=== PATIENT | male | born 1945 | race Caucasian/White ===

== ENCOUNTER 2018-11-24 13:13 | Inpatient (IN) ==
[2018-11-24] MEDS ORDERED: Mag Hydrox/Al Hydrox/Simeth 30 ML UDC PO PRN (18:12)
[2018-11-24] MEDS ORDERED: Ondansetron ODT 4 MG TAB.RAPDIS SL PRN (18:13)
[2018-11-24] MEDS: *HR* OxyCODONE/APAP 5/325 TABLET PO PRN (20:21)
[2018-11-24] MEDS: Melatonin 3 MG TABLET PO PRN (20:22)
[2018-11-24] MEDS: Budesonide/Formoterol 160/4.5 1 PUFF INH IH SCH (20:47)
[2018-11-24] MEDS ORDERED: Povidone-Iodine 237 ML BOTTLE TP SCH ×2 (21:00)
[2018-11-25 00:29] LABS: INR 1.7; Prothrombin Time 18.9 Seconds (9.4-12.1)
[2018-11-25] MEDS ORDERED: *HR* Warfarin 3 MG TABLET PO ONE ×2 (01:00→18:00)
[2018-11-25 05:45] LABS: Basophils # 0.1 K/mcL (0.0-0.2); Basophils % 0.6 %; Eosinophils # 0.9 K/mcL (0.0-0.6); Eosinophils % 7.2 %; Hemoglobin 9.6 g/dL (12.9-16.9); Immature Granulocytes % 1.2 % (0-4); Lymphocytes # 1.7 K/mcL (0.6-4.6); Lymphocytes % 13.9 %; Mean Corpuscular Hemoglobin 29.8 pg (28.0-33.3); Mean Corpuscular Volume 93.2 fL (83.0-100.0); Mean Platelet Volume 8.9 fL (9.4-12.4); Monocytes # 1.5 K/mcL (0.0-1.3); Neutrophils # 7.9 K/mcL (1.6-8.9); Platelet Count 352 K/mcL (140-400); Red Blood Count 3.22 M/mcL (4.19-5.50); Red Cell Distribution Width 13.7 % (11.5-14.5); Segmented Neutrophils % 65.1 %; White Blood Count 12.2 K/mcL (4.3-11.1)
[2018-11-25 05:49] LABS: INR 1.7; Prothrombin Time 18.8 Seconds (9.4-12.1)
[2018-11-25 06:13] LABS: Alanine Aminotransferase 30 Units/L (7-52); Albumin 3.3 g/dL (3.5-5.7); Albumin/Globulin Ratio 1.2 (1.1-2.2); Alkaline Phosphatase 79 Units/L (34-104); Aspartate Amino Transferase 19 Units/L (13-39); BUN/Creatinine Ratio 20 (6-26); Bilirubin,Total 0.5 mg/dL (0.3-1.0); Blood Urea Nitrogen 23 mg/dL (8-23); Calcium 9.1 mg/dL (8.6-10.3); Carbon Dioxide 26 mEq/L (23-29); Chloride 100 mEq/L (98-107); Globulin 2.8 g/dL (2.4-3.5); Glucose 155 mg/dL (70-105); Magnesium 1.9 mg/dL (1.6-2.6); Osmolality,Calculated 283 (280-300); Potassium 4.5 mEq/L (3.5-5.1); Sodium 133 mEq/L (136-145); Total Protein 6.1 g/dL (6.4-8.9); eGFR For African Americans > 60 (> 60); eGFR For Non-African Americans > 60 (> 60)
[2018-11-25 06:16] LABS: Thyroid Stimulating Hormone 2.469 mcIU/mL (0.340-5.600)
[2018-11-25] MEDS: Aspirin 81 MG TAB.CHEW PO SCH (08:06)
[2018-11-25] MEDS: Cholecalciferol (D-3) 1,000 UNIT (25MCG) TABLET PO SCH (08:06)
[2018-11-25] MEDS: Cyanocobalamin (B-12) 1,000 MCG TABLET PO SCH (08:06)
[2018-11-25] MEDS: Budesonide/Formoterol 160/4.5 1 PUFF INH IH SCH ×2 (08:33→19:34)
--- NOTE | 2018-11-25 11:11 | Internal Med History&Physical ---
Date of Encounter: 11/25/18 Time of Encounter: 11:08 Assessment and Plan (1) Peripheral vascular disease Current visit: Yes Status: Chronic Patient surgically treated at an [facility] for peripheral vascular disease, which has resulted in amputation of his right great toe. Right foot bulking dressing remains dry and intact. Several toes exposed appears slightly discolored. Right leg and foot is warm to touch. Patient denies any pain to his right foot. Physical therapy evaluation pending with recommendations. We will continue with current plan of care (2) Status post femoral-popliteal bypass surgery Current visit: Yes Status: Acute No acute issues. Patient has a staple line to his right groin and right medial leg that appears dry and intact. Distal CV checks appear normal. We will continue with current plan of care and therapy. (3) Dementia Current visit: Yes Status: Chronic Patient has had some behavior issues during the night from nursing spars compliance with care. Patient appears to be calmed with the presence of his at bedside. We will review patient's most current medications and continue to monitor Qualifiers: Dementia type: Alzheimer's disease Alzheimer's disease onset: unspecified onset Dementia behavioral disturbance: with behavioral disturbance Qualified Code(s): G30.9 - Alzheimer's disease, unspecified; F02.81 - Dementia in other diseases classified elsewhere with behavioral disturbance (4) COPD exacerbation Current visit: No Status: Chronic No acute issues. Patient's lungs are diminished throughout lower [place] but otherwise clear. Patient denies any dyspnea. No productive cough. We will continue with current medications and bronchodilators. (5) Ischemic cardiomyopathy Current visit: No Status: Acute (6) CAD (coronary artery disease) Current visit: Yes Status: Chronic No current issues. Patient denies any chest discomforts of palpitations. Vital signs stable. We will continue with current medications. Qualifiers: Coronary Disease-Associated Artery/Lesion type: bypass graft [place] vs. transplanted heart: [place] heart Associated angina: without angina Qualified Code(s): I25.810 - Atherosclerosis of coronary artery bypass graft(s) without angina pectoris Internal Medicine - H&P: HPI Chief complaint: PVD Admitted From: Hospital to Hospital Transfer Plans for Post Hospital Care: Home History of present illness: Mr. Gaspar is a 73 year old male, who was transferred here from an [facility] hospital where he was treated for severe peripheral vascular disease. Patient had presented with a ischemic toes and after evaluation had received a right femoropopliteal and a right femoral endarterectomy. Patient also had a right great toe amputation and presents with dressing to right foot dry and intact. Patient's recovery at Hospital has been complicated with his confusion related to his dementia. Patient currently appears relaxed and has been cooperative while his is present. Nurse reports patient has had some issues with compliance during the night due to confusion. Patient currently denies any discomforts, except for arthritic type pain to his knees. Right groin and right leg staple lines appear dry and intact. Right foot and distal leg remain warm to touch with color. Patient states that his pain to the surgical site has been tolerable. Patient with a medical history of COPD, diabetes, hypertension, dementia, CVA. Patient also has had a recent right hip replacement on 10/09/18. Past Med Surg Social Fam HX - Past Medical History Medical history: arthritis, COPD, coronary artery disease, CVA, diabetes, hyperlipidemia, hypertension, myocardial infarction, TIA, other Additional medical history: beginning stages of Alzheimers, sleep apnea Psychiatric history: no psych history - Past Surgical History Surgical History: appendectomy, coronary bypass (CABG), heart valve replacement Additional surgical history: toe amputation - Social History Smoking Status: Former smoker Smokeless Tobacco Status: No Alcohol use: none Drug use: none - Family History Mother Living Status: Hx Family Endocrine Disorder: Yes (DM) Father Living Status: Internal Medicine - H&P: Meds Acetaminophen [Tylenol] 650 mg PO Q6H PRN 03/22/15 [History] Albuterol Sulfate [Proair Respiclick] 1 puff IH Q6H PRN 03/22/15 [History] Budesonide/Formoterol 160/4.5 [Symbicort 160/4.5] 2 puff IH BIDR 03/22/15 [History] Lisinopril [Zestril] 40 mg PO DAILY 03/22/15 [History] Metformin HCl [Glucophage] 1,000 mg PO BID 03/22/15 [History] Pravastatin Sodium [Pravachol] 80 mg PO HS 03/22/15 [History] Aspirin 81 mg PO DAILY 11/25/18 [History] Carboxymethylcellulose Sodium [Refresh Celluvisc] 11/25/18 [History] Carvedilol [Coreg] 25 mg PO BID 11/25/18 [History] Cholecalciferol (D-3) [Vitamin D] 1,000 unit PO DAILY 11/25/18 [History] Clindamycin [Cleocin] 3 cap PO Q8H 11/25/18 [History] Cyanocobalamin (B-12) [Vitamin B12] 1,000 mcg PO DAILY 11/25/18 [History] Donepezil [Aricept] 10 mg PO HS 11/25/18 [History] Ergocalciferol (VITAMIN D2) [Drisdol (50,000 Unit)] 50,000 unit PO QWEEK 11/25/18 [History] Escitalopram [Lexapro] 20 mg PO DAILY 11/25/18 [History] Furosemide [Lasix] 20 mg PO BID 11/25/18 [History] Melatonin [Melatin] 3 mg PO HS 11/25/18 [History] Memantine [Namenda] 10 mg PO BID 11/25/18 [History] Methimazole [Tapazole] 5 mg PO DAILY 11/25/18 [History] NIFEdipine XL (24 HR) [Procardia XL] 30 mg PO DAILY 11/25/18 [History] Oxycodone HCl/Acetaminophen [Percocet 5-325 mg Tablet] 1 each PO Q6H PRN 11/25/18 [History] Pantoprazole Sodium [Protonix] 40 mg PO DAILY 11/25/18 [History] Povidone-Iodine 1 each TP BID 11/25/18 [History] Tiotropium [Spiriva] 18 mcg IH DAILY 11/25/18 [History] Warfarin 6 mg PO QPM 11/25/18 [History] levoFLOXacin [Levaquin] 750 mg PO Q48H 11/25/18 [History] Allergy/AdvReac Type Severity Reaction Status Date / Time atorvastatin Allergy Rash Verified 03/22/15 16:23 rosuvastatin Allergy Rash Verified 03/22/15 16:23 simvastatin Allergy Rash Verified 03/22/15 16:23 All Systems PM: A 10-system review of systems was performed and is negative for pertinent findings except as documented above in the HPI. - Constitutional Constitutional: as per HPI, no chills, no fever(s), no night sweats - EENT Eyes: as per HPI, no change in vision, no discharge, no pain, no photophobia Ears: no ear discharge, no ear pain, no tinnitus Nose, mouth and throat: no dysphagia, no nasal discharge, no neck pain, no sore throat - Cardiovascular Cardiovascular ROS IM: as per HPI, no chest pain, no diaphoresis, no dyspnea, no lightheadedness, no palpitations, no syncope - Respiratory Respiratory: as per HPI, no cough, no dyspnea, no wheezing, no excessive phlegm production - Gastrointestinal Gastrointestinal: as per HPI, no abdominal pain, no diarrhea, no hematemesis, no hematochezia, no melena, no nausea, no vomiting - Genitourinary Genitourinary ROS male: as per HPI - Musculoskeletal Musculoskeletal ROS IM: as per HPI, no numbness, no tingling - Integumentary Integumentary IM: as per HPI, no rash, no unusual bruising - Neurological Neurological ROS: as per HPI, no confusion, no convulsions, no focal weakness, no numbness, no tingling, no tremor(s) - Psychiatric Psychiatric: as per HPI - Hematologic/Lymphatic Hematologic/Lymphatic: no easy bruising - Constitutional Vitals: Temp Pulse Resp BP Pulse Ox 98.3 F 84 16 130/69 97 11/25/18 10:49 11/25/18 10:49 11/25/18 10:49 11/25/18 10:49 11/25/18 10:49 General appearance: Present: A&O X 2, pleasant Exam: Vision have some difficulty with recall of time. Otherwise patient has been cooperative during exam and appropriate with conversation. Patient noted to have poor short-term memory recall and is poor historian on his medical history - Head Head exam: Present: atraumatic, normocephalic - Eye Eye exam: Present: PERRL, conjuntiva pink, sclera anicteric Pupils: Present: PERRL - Neck Neck exam general surgery: Present: supple, trachea midline. Absent: lymphadenopathy - Respiratory Respiratory exam: Present: decreased breath sounds, CTAB. Absent: accessory muscle use, rales, rhonchi, wheezes - Cardiovascular Cardiovascular exam: Present: RRR, +S1, +S2. Absent: diastolic murmur, gallop, rubs, systolic murmur - GI/Abdominal GI/Abdominal exam: Present: normal bowel sounds, soft, no peritoneal signs. Absent: distended, tenderness - Extremities Exam Extremities exam: Present: warm, radial pulses palpable and symmetrical. Absent: calf tenderness, cyanotic, pedal edema Additional comments: Patient was staple line to right groin and right medial leg that appears healthy and intact. Pocket dressing to right foot at amputation site remains dry and intact. Several toes exposed which appears slightly discolored. - Neurological Exam Neurological exam: Present: CN II-XII intact, oriented X3, no focal deficits. Absent: pronater drift, facial droop, speech deficit - Skin Skin exam: Present: dry, intact Internal Med - H&P Results - Labs CBC & Chem 7: 11/25/18 05:35 11/25/18 05:35 Labs: Short CBC 11/25/18 Range/Units 05:35 WBC 12.2 H (4.3-11.1) K/mcL Hgb 9.6 L (12.9-16.9) g/dL Hct 30.0 L (37.5-50.1) % Plt Count 352 (140-400) K/mcL Neutrophils # 7.9 (1.6-8.9) K/mcL BMP 11/25/18 05:35 Sodium 133 L Potassium 4.5 Chloride 100 Carbon Dioxide 26 BUN 23 Creatinine 1.17 Glucose 155 H Calcium 9.1 Liver Function 11/25/18 Range/Units 05:35 Total Bilirubin 0.5 (0.3-1.0) mg/dL AST 19 (13-39) Units/L ALT 30 (7-52) Units/L Alkaline Phosphatase 79 (34-104) Units/L Albumin 3.3 L (3.5-5.7) g/dL
[2018-11-25] MEDS ORDERED: Furosemide 20 MG TABLET PO SCH ×2 (11:24→21:00)
[2018-11-25] MEDS: methIMAzole 5 MG TABLET PO SCH (12:28)
[2018-11-25] MEDS: NIFEdipine XL (24 HR) 30 MG TAB.ER.24 PO SCH (12:28)
[2018-11-25] MEDS: Lisinopril 20 MG TABLET PO SCH (12:29)
[2018-11-25] MEDS: *HR* Enoxaparin 40 MG/0.4 ML SYRINGE SQ SCH (12:29)
[2018-11-25] MEDS: *HR* Metformin 500 MG TABLET PO SCH ×2 (12:33→20:30)
[2018-11-25] MEDS: Tiotropium 18 MCG inhalation IH SCH (13:04)
[2018-11-25] MEDS ORDERED: Warfarin perPT PO PRN (18:00)
[2018-11-25] MEDS ORDERED: *HR* Enoxaparin 40 MG/0.4 ML SYRINGE SQ SCH (19:15)
[2018-11-25] MEDS: Melatonin 3 MG TABLET PO PRN (20:30)
[2018-11-25] MEDS: Acetaminophen 325 MG TABLET PO PRN (20:41)
[2018-11-25] MEDS ORDERED: NON-FORMULARY MEDICATION 1 EACH EACH (Pravastatin Sodium [Pravachol] 80 MG) PO SCH (21:00)
[2018-11-26] MEDS: *HR* Enoxaparin 40 MG/0.4 ML SYRINGE SQ SCH (05:52)
[2018-11-26 05:59] LABS: INR 2.2; Prothrombin Time 25.1 Seconds (9.4-12.1)
[2018-11-26] MEDS: Budesonide/Formoterol 160/4.5 1 PUFF INH IH SCH ×2 (07:29→19:42)
[2018-11-26] MEDS: Tiotropium 18 MCG inhalation IH SCH (07:30)
[2018-11-26] MEDS: *HR* Metformin 500 MG TABLET PO SCH ×2 (08:32→20:51)
[2018-11-26] MEDS: levoFLOXacin 750 MG TABLET PO SCH (08:33)
[2018-11-26] MEDS: NIFEdipine XL (24 HR) 30 MG TAB.ER.24 PO SCH (08:33)
[2018-11-26] MEDS: Lisinopril 20 MG TABLET PO SCH (08:34)
[2018-11-26] MEDS: Furosemide 40 MG TABLET PO SCH (08:34)
[2018-11-26] MEDS: methIMAzole 5 MG TABLET PO SCH (08:34)
[2018-11-26] MEDS: Cyanocobalamin (B-12) 1,000 MCG TABLET PO SCH (08:35)
[2018-11-26] MEDS: Aspirin 81 MG TAB.CHEW PO SCH (08:35)
[2018-11-26] MEDS: Cholecalciferol (D-3) 1,000 UNIT (25MCG) TABLET PO SCH (08:42)
[2018-11-26] MEDS: *HR* OxyCODONE/APAP 5/325 TABLET PO PRN (11:36)
--- NOTE | 2018-11-26 12:10 | Internal Med Progress Note ---
Date of Encounter: 11/26/18 Time of Encounter: 12:08 - Assessment and plan (1) CAD (coronary artery disease) Current Visit: Yes Status: Chronic Assessment and plan: Stable. Denies chest pain. Continue current medication. Qualifiers: Coronary Disease-Associated Artery/Lesion type: bypass graft [place] vs. transplanted heart: [place] heart Associated angina: without angina Qualified Code(s): I25.810 - Atherosclerosis of coronary artery bypass graft(s) without angina pectoris (2) Peripheral vascular disease Current Visit: Yes Status: Chronic Assessment and plan: Status post right great toe amputation and fem- pop bypass. (3) Status post femoral-popliteal bypass surgery Current Visit: Yes Status: Acute Assessment and plan: Follow up with vascular scheduled. (4) Dementia Current Visit: Yes Status: Chronic Assessment and plan: Continue supportive care. Assist with ADLs. Progressive disease. Qualifiers: Dementia type: Alzheimer's disease Alzheimer's disease onset: unspecified onset Dementia behavioral disturbance: with behavioral disturbance Qualified Code(s): G30.9 - Alzheimer's disease, unspecified; F02.81 - Dementia in other diseases classified elsewhere with behavioral disturbance - Time Spent With Patient less than 15 minutes - Subjective Interval history: Participating well with therapy. Ambulating with Walker. Denies pain or concerns at this time. Denies fever, chills, nausea vomiting or diarrhea. Denies shortness of breath or chest pain. - Constitutional Vitals: Temp Pulse Resp BP Pulse Ox 98.6 F 79 16 134/79 99 11/26/18 07:00 11/26/18 07:00 11/26/18 07:00 11/26/18 07:00 11/26/18 07:00 General appearance: Present: A&O X 2, pleasant - Head Head exam: Present: atraumatic, normocephalic - Eye Eye exam: Present: PERRL, conjuntiva pink, sclera anicteric Pupils: Present: PERRL - Neck Neck exam general surgery: Present: supple, trachea midline. Absent: lymphadenopathy - Respiratory Respiratory exam: Present: CTAB. Absent: accessory muscle use, rales, rhonchi, wheezes - Cardiovascular Cardiovascular exam: Present: RRR, +S1, +S2. Absent: diastolic murmur, gallop, rubs, systolic murmur - GI/Abdominal GI/Abdominal exam: Present: normal bowel sounds, soft, no peritoneal signs. Absent: distended, tenderness - Extremities Exam Extremities exam: Present: warm, radial pulses palpable and symmetrical. Absent: calf tenderness, cyanotic, pedal edema - Neurological Exam Neurological exam: Present: CN II-XII intact, oriented X3, no focal deficits. Absent: pronater drift, facial droop, speech deficit - Skin Skin exam: Present: dry, intact Additional comments: Dressing to right foot dry and intact. Internal Medicine: Result - Labs CBC & Chem 7: 11/25/18 05:35 11/25/18 05:35 - ABG Interpretation ABG results: PT/INR, D-dimer PT 25.1 Seconds (9.4-12.1) H 11/26/18 05:45 Consult Discharge Plan - Plan [facility] [Primary Care Provider[facility] -
--- NOTE | 2018-11-26 15:08 | Psychological Evaluation ---
Date of Encounter: 11/26/18 Time of Encounter: 09:30 (Bedside) History of Present Illness History of present illness: Mr. Gaspar is a 73 year old male with a history of dementia who had recent toe amputation and bypass surgery at [facility] to correct peripheral vascular disease. He has had multiple problems and would like to gain strength to return home. He is noted by nursing to be reticent to answer questions and so his helps with interview. He is to have local wound care and antibiotics, has Betadine treatment of his right femoral popliteal incision, as well. Past Medical History - Psychiatric History Psychiatric history: Denies: no psych history Home Medications and Allergies Acetaminophen [Tylenol] 650 mg PO Q6H PRN 03/22/15 [History] Albuterol Sulfate [Proair Respiclick] 1 puff IH Q6H PRN 03/22/15 [History] Budesonide/Formoterol 160/4.5 [Symbicort 160/4.5] 2 puff IH BIDR 03/22/15 [History] Lisinopril [Zestril] 40 mg PO DAILY 03/22/15 [History] Metformin HCl [Glucophage] 1,000 mg PO BID 03/22/15 [History] Pravastatin Sodium [Pravachol] 80 mg PO HS 03/22/15 [History] Aspirin 81 mg PO DAILY 11/25/18 [History] Carboxymethylcellulose Sodium [Refresh Celluvisc] 11/25/18 [History] Carvedilol [Coreg] 25 mg PO BID 11/25/18 [History] Cholecalciferol (D-3) [Vitamin D] 1,000 unit PO DAILY 11/25/18 [History] Clindamycin [Cleocin] 3 cap PO Q8H 11/25/18 [History] Cyanocobalamin (B-12) [Vitamin B12] 1,000 mcg PO DAILY 11/25/18 [History] Donepezil [Aricept] 10 mg PO HS 11/25/18 [History] Ergocalciferol (VITAMIN D2) [Drisdol (50,000 Unit)] 50,000 unit PO QWEEK 11/25/18 [History] Escitalopram [Lexapro] 20 mg PO DAILY 11/25/18 [History] Furosemide [Lasix] 20 mg PO BID 11/25/18 [History] Melatonin [Melatin] 3 mg PO HS 11/25/18 [History] Memantine [Namenda] 10 mg PO BID 11/25/18 [History] Methimazole [Tapazole] 5 mg PO DAILY 11/25/18 [History] NIFEdipine XL (24 HR) [Procardia XL] 30 mg PO DAILY 11/25/18 [History] Oxycodone HCl/Acetaminophen [Percocet 5-325 mg Tablet] 1 each PO Q6H PRN 11/25/18 [History] Pantoprazole Sodium [Protonix] 40 mg PO DAILY 11/25/18 [History] Povidone-Iodine 1 each TP BID 11/25/18 [History] Tiotropium [Spiriva] 18 mcg IH DAILY 11/25/18 [History] Warfarin 6 mg PO QPM 11/25/18 [History] levoFLOXacin [Levaquin] 750 mg PO Q48H 11/25/18 [History] Allergy/AdvReac Type Severity Reaction Status Date / Time atorvastatin Allergy Rash Verified 03/22/15 16:23 rosuvastatin Allergy Rash Verified 03/22/15 16:23 simvastatin Allergy Rash Verified 03/22/15 16:23 Social History - Social History Social History: 28 years and stated 6 kids between he and his . He was and prior. Stated he had HI and CVA 10-15 years ago and difficulties functioning after these events cognitively/linguistically. 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 He stated he has not been driving in over a year. He enjoys his dog at home and stated he has care while works (12 yrs younger). - Tobacco Use Smoking Status: Former smoker - Alcohol Use Alcohol Use: none - Drug Use Drug Use: none Cognitive/Emotional Assessment - Cognitive Ability Abstract Thinking Ability: Unable to Apply Concepts to New Surroundings Attention Span Ability: Unable to Sustain Attention Level of Alertness: Alert Orientation: Person, Place, Day of Week, Month, Year Ability to Follow Directions: Needs Directions Repeated Speech Pattern: Difficulty finding words Thought Process: Slowed Thinking Additional Findings: Several times became confused with requests. Difficulty with dates and history. Did not know correct day and year of . Verbal Paraphasic errors noted. Had difficulty repeating 3 words and unable to recall any. Confused with digits request. Knew president and described previous pres. - Emotional Status Mood Description: Depressed Affect Description: Tearful Coping Ability: Unsure about ability to cope Additional Findings: He was tearful discussing his condition and difficulties. There was some awareness of errors and difficulties. Missed being home and around family. 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 Treatment Frequency: weekly Next Session Date: 12/03/18 Procedures - Participants Therapy Participant: Patient - Session Time Session Start Time: 09:30 Session Stop Time: 10:00
[2018-11-26] MEDS: Acetaminophen 325 MG TABLET PO PRN (17:01)
[2018-11-26] MEDS ORDERED: *HR* Warfarin 3 MG TABLET PO ONE (18:00)
[2018-11-26] MEDS: Melatonin 3 MG TABLET PO PRN (20:51)
[2018-11-26] MEDS: PATIENT TAKING PO SCH (20:53)
[2018-11-27] MEDS: Acetaminophen 325 MG TABLET PO PRN ×2 (05:46→14:38)
[2018-11-27 06:51] LABS: INR 3.4; Prothrombin Time 39.2 Seconds (9.4-12.1)
[2018-11-27] MEDS: Tiotropium 18 MCG inhalation IH SCH (07:24)
[2018-11-27] MEDS: Budesonide/Formoterol 160/4.5 1 PUFF INH IH SCH ×2 (07:27→20:31)
[2018-11-27] MEDS: Cholecalciferol (D-3) 1,000 UNIT (25MCG) TABLET PO SCH (09:27)
[2018-11-27] MEDS: Furosemide 40 MG TABLET PO SCH (09:29)
[2018-11-27] MEDS: Cyanocobalamin (B-12) 1,000 MCG TABLET PO SCH (09:30)
[2018-11-27] MEDS: Aspirin 81 MG TAB.CHEW PO SCH (09:30)
[2018-11-27] MEDS: *HR* Metformin 500 MG TABLET PO SCH ×2 (09:30→20:31)
[2018-11-27] MEDS: Lisinopril 20 MG TABLET PO SCH (09:31)
[2018-11-27] MEDS: methIMAzole 5 MG TABLET PO SCH (09:31)
[2018-11-27] MEDS: NIFEdipine XL (24 HR) 30 MG TAB.ER.24 PO SCH (09:31)
--- NOTE | 2018-11-27 12:26 | Internal Med Progress Note ---
Date of Encounter: 11/27/18 Time of Encounter: 12:24 - Assessment and plan (1) Peripheral vascular disease Current Visit: Yes Status: Chronic Assessment and plan: No acute issues. Patient continues to persist patient therapy and progressed well. Right leg remains warm to touch. No reports of claudication. Patient with recent femoropopliteal bypass. Progressing well with therapy. We will continue with current plan of care (2) Status post femoral-popliteal bypass surgery Current Visit: Yes Status: Acute Assessment and plan: Right groin and medial leg surgical incision remains healthy and intact with gerson in place. CV checks on legs remain normal. No reports claudication. Patient dissipated therapy and progressed well. (3) Dementia Current Visit: Yes Status: Chronic Assessment and plan: No reports behavior issues per staff. Patient has been cooperative and participating in therapy. We will continue with current medications Qualifiers: Dementia type: Alzheimer's disease Alzheimer's disease onset: unspecified onset Dementia behavioral disturbance: with behavioral disturbance Qualified Code(s): G30.9 - Alzheimer's disease, unspecified; F02.81 - Dementia in other diseases classified elsewhere with behavioral disturbance (4) COPD exacerbation Current Visit: No Status: Chronic Assessment and plan: No acute issues. Lungs are clear with diminished bases. Patient denies any dyspnea or productive cough. We will continue with current medications (5) Ischemic cardiomyopathy Current Visit: No Status: Acute (6) CAD (coronary artery disease) Current Visit: Yes Status: Chronic Assessment and plan: No acute issues. Patient denies any chest palpitations or discomforts. Vital signs are stable. We will continue with current medications Qualifiers: Coronary Disease-Associated Artery/Lesion type: bypass graft [place] vs. transplanted heart: [place] heart Associated angina: without angina Qualified Code(s): I25.810 - Atherosclerosis of coronary artery bypass graft(s) without angina pectoris - Time Spent With Patient less than 15 minutes - Subjective Interval history: Patient currently denies any discomforts or shortness of breath. Patient has been cooperative with care with no behavior issues reported per nursing. Patient poor historian due to history of dementia. - Constitutional Vitals: Temp Pulse Resp BP Pulse Ox 98.5 F 86 16 161/74 96 11/27/18 08:00 11/27/18 08:00 11/27/18 08:00 11/27/18 08:00 11/27/18 08:00 General appearance: Present: A&O X 2, pleasant - Head Head exam: Present: atraumatic, normocephalic - Eye Eye exam: Present: PERRL, conjuntiva pink, sclera anicteric Pupils: Present: PERRL - Neck Neck exam general surgery: Present: supple, trachea midline. Absent: lymphadenopathy - Respiratory Respiratory exam: Present: decreased breath sounds, CTAB. Absent: accessory muscle use, rales, rhonchi, wheezes - Cardiovascular Cardiovascular exam: Present: RRR, +S1, +S2, systolic murmur. Absent: diastolic murmur, gallop, rubs - GI/Abdominal GI/Abdominal exam: Present: normal bowel sounds, soft, no peritoneal signs. Absent: distended, tenderness - Extremities Exam Extremities exam: Present: warm, radial pulses palpable and symmetrical. A bsent: calf tenderness, cyanotic, pedal edema Additional comments: Patient has staple line to right groin and right medial leg remains dry and intact. No ecchymosis or erythema noted. Patient's right foot remains with dressing in place to his surgical site from his great toe amputation. - Neurological Exam Neurological exam: Present: CN II-XII intact, oriented X3, no focal deficits. Absent: pronater drift, facial droop, speech deficit - Skin Skin exam: Present: dry, intact Internal Medicine: Result - Labs CBC & Chem 7: 11/25/18 05:35 11/25/18 05:35 - ABG Interpretation ABG results: PT/INR, D-dimer PT 39.2 Seconds (9.4-12.1) H D 11/27/18 05:40 Consult Discharge Plan - Plan [facility]errals: [facility] [Primary Care Provider[facility] -
[2018-11-27] MEDS: Melatonin 3 MG TABLET PO PRN (20:31)
[2018-11-27] MEDS: PATIENT TAKING PO SCH (20:32)
[2018-11-28 05:17] LABS: INR 2.5; Prothrombin Time 28.3 Seconds (9.4-12.1)
[2018-11-28] MEDS: Budesonide/Formoterol 160/4.5 1 PUFF INH IH SCH ×2 (07:11→22:19)
[2018-11-28] MEDS: Tiotropium 18 MCG inhalation IH SCH (07:12)
[2018-11-28] MEDS: *HR* Metformin 500 MG TABLET PO SCH ×2 (08:55→22:19)
[2018-11-28] MEDS: levoFLOXacin 750 MG TABLET PO SCH (08:56)
[2018-11-28] MEDS: methIMAzole 5 MG TABLET PO SCH (08:56)
[2018-11-28] MEDS: NIFEdipine XL (24 HR) 30 MG TAB.ER.24 PO SCH (08:56)
[2018-11-28] MEDS: Aspirin 81 MG TAB.CHEW PO SCH (08:56)
[2018-11-28] MEDS: Lisinopril 20 MG TABLET PO SCH (08:56)
[2018-11-28] MEDS: Cyanocobalamin (B-12) 1,000 MCG TABLET PO SCH (08:56)
[2018-11-28] MEDS: Cholecalciferol (D-3) 1,000 UNIT (25MCG) TABLET PO SCH (08:57)
[2018-11-28] MEDS: Furosemide 40 MG TABLET PO SCH (08:57)
--- NOTE | 2018-11-28 09:37 | Internal Med Progress Note ---
Date of Encounter: 11/28/18 Time of Encounter: 09:35 - Assessment and plan (1) Peripheral vascular disease Current Visit: Yes Status: Chronic Assessment and plan: No acute issues. Patient continues to persist patient therapy and progressed well. Right leg remains warm to touch. No reports of claudication. Patient with recent femoropopliteal bypass and right great toe amputation. Progressing well with therapy. We will continue with current plan of care (2) Status post femoral-popliteal bypass surgery Current Visit: Yes Status: Acute Assessment and plan: Right groin and medial leg surgical incision remains healthy and intact with gerson in place. CV checks on legs remain normal. No reports claudication. Patient dissipated therapy and progressed well. (3) Dementia Current Visit: Yes Status: Chronic Assessment and plan: No reports behavior issues per staff. Patient has been cooperative and participating in therapy. We will continue with current medications Qualifiers: Dementia type: Alzheimer's disease Alzheimer's disease onset: unspecified onset Dementia behavioral disturbance: with behavioral disturbance Qualified Code(s): G30.9 - Alzheimer's disease, unspecified; F02.81 - Dementia in other diseases classified elsewhere with behavioral disturbance (4) COPD exacerbation Current Visit: No Status: Chronic Assessment and plan: No acute issues. Lungs are clear with diminished bases. Patient denies any dyspnea or productive cough. We will continue with current medications (5) Ischemic cardiomyopathy Current Visit: No Status: Acute Assessment and plan: No acute issues. Patient denies any chest discomforts, palpitations or dyspnea. Vital signs stable. We will continue with current medications (6) CAD (coronary artery disease) Current Visit: Yes Status: Chronic Assessment and plan: No acute issues. Patient denies any chest palpitations or discomforts. Vital signs are stable. We will continue with current medications Qualifiers: Coronary Disease-Associated Artery/Lesion type: bypass graft [place] vs. transplanted heart: [place] heart Associated angina: without angina Qualified Code(s): I25.810 - Atherosclerosis of coronary artery bypass graft(s) without angina pectoris (7) Right knee pain Current Visit: Yes Status: Chronic Assessment and plan: Patient complaints of pain to his right knee which he states has been a chronic issue due to arthritis. Right knee remains slightly swollen but no erythema noted. Patient continues to mobilize with therapy Qualifiers: Chronicity: chronic Qualified Code(s): M25.561 - Pain in right knee; G89.29 - Other chronic pain - Time Spent With Patient less than 15 minutes - Subjective Interval history: Patient currently denies any issues although patient later on conversation states that he has had increased pain to his right knee. Patient does state that this is been a chronic issue to arthritis. Patient continues to be a poor historian having difficulty with short term memory. Patient has been cooperative with care with no behavior issues reported per nursing. - Constitutional Vitals: Temp Pulse Resp BP Pulse Ox 98.3 F 77 15 138/79 97 11/28/18 07:00 11/28/18 07:00 11/28/18 07:10 11/28/18 07:00 11/28/18 07:10 General appearance: Present: A&O X 2, pleasant - Head Head exam: Present: atraumatic, normocephalic - Eye Eye exam: Present: PERRL, conjuntiva pink, sclera anicteric Pupils: Present: PERRL - Neck Neck exam general surgery: Present: supple, trachea midline. Absent: lymphadenopathy - Respiratory Respiratory exam: Present: decreased breath sounds, CTAB. Absent: accessory muscle use, rales, rhonchi, wheezes - Cardiovascular Cardiovascular exam: Present: RRR, +S1, +S2, systolic murmur. Absent: diastolic murmur, gallop, rubs - GI/Abdominal GI/Abdominal exam: Present: normal bowel sounds, soft, no peritoneal signs. Absent: distended, tenderness - Extremities Exam Extremities exam: Present: warm, radial pulses palpable and symmetrical. Absent: calf tenderness, cyanotic, pedal edema Additional comments: Patient has a right femoral staple line appears healthy and intact. Patient also has a small incision with gerson to the right medial thigh that also appears healthy and intact. Right knee was slight edema noted. No erythema or ecchymosis noted. Leg remains warm to touch. Dressing to right ankle and foot remains dry and intact. Right foot dressing in place for right great toe amputation - Neurological Exam Neurological exam: Present: CN II-XII intact, oriented X3, no focal deficits. Absent: pronater drift, facial droop, speech deficit - Skin Skin exam: Present: dry, intact Internal Medicine: Result - Labs CBC & Chem 7: 11/25/18 05:35 11/25/18 05:35 - ABG Interpretation ABG results: PT/INR, D-dimer PT 28.3 Seconds (9.4-12.1) H 11/28/18 04:30 Consult Discharge Plan - Plan [facility]errals: [facility] [Primary Care Provider[facility] -
[2018-11-28 14:20] LABS: Basophils # 0.1 K/mcL (0.0-0.2); Basophils % 0.5 %; Eosinophils # 0.7 K/mcL (0.0-0.6); Hematocrit 30.4 % (37.5-50.1); Hemoglobin 9.7 g/dL (12.9-16.9); Immature Granulocytes % 0.7 % (0-4); Lymphocytes % 5.7 %; Mean Corpuscular HGB Conc 31.9 g/dL (31.6-35.5); Mean Corpuscular Hemoglobin 29.6 pg (28.0-33.3); Mean Corpuscular Volume 92.7 fL (83.0-100.0); Monocytes # 1.9 K/mcL (0.0-1.3); Monocytes % 10.5 %; Neutrophils # 14.1 K/mcL (1.6-8.9); Platelet Count 380 K/mcL (140-400); Red Blood Count 3.28 M/mcL (4.19-5.50); Red Cell Distribution Width 13.6 % (11.5-14.5); Segmented Neutrophils % 78.6 %; White Blood Count 17.9 K/mcL (4.3-11.1)
[2018-11-28 14:32] LABS: Calcium 8.9 mg/dL (8.6-10.3); Potassium 4.3 mEq/L (3.5-5.1)
[2018-11-28] MEDS ORDERED: *HR* Warfarin 3 MG TABLET PO ONE (18:00)
[2018-11-28] MEDS: Melatonin 3 MG TABLET PO PRN (22:19)
[2018-11-28] MEDS: PATIENT TAKING PO SCH (22:20)
[2018-11-28] MEDS: Acetaminophen 325 MG TABLET PO PRN (22:20)
[2018-11-29 07:04] LABS: INR 2.2; Prothrombin Time 24.8 Seconds (9.4-12.1)
--- NOTE | 2018-11-29 09:25 | Internal Med Progress Note ---
Date of Encounter: 11/29/18 Time of Encounter: 09:25 - Assessment and plan (1) Peripheral vascular disease Current Visit: Yes Status: Chronic Assessment and plan: Patient seems stable but will need to be followed because of ecchymosis at toes. (2) Leukocytosis Current Visit: Yes Status: Acute Assessment and plan: No significant findings but will need to follow and will empirically check a urinalysis in view of his continence. Qualifiers: Leukocytosis type: unspecified Qualified Code(s): D72.829 - Elevated white blood cell count, unspecified (3) CAD (coronary artery disease) Current Visit: Yes Status: Chronic Assessment and plan: No current symptoms. Qualifiers: Coronary Disease-Associated Artery/Lesion type: bypass graft [place] vs. transplanted heart: [place] heart Associated angina: without angina Qualified Code(s): I25.810 - Atherosclerosis of coronary artery bypass graft(s) without angina pectoris (4) Dementia Current Visit: Yes Status: Chronic Assessment and plan: Seems slightly worse over the last couple of days per direction with nursing and therapy. Also, concerned about his incontinence. We will follow. No definite medical reasons for worsening, at this time. Qualifiers: Dementia type: Alzheimer's disease Alzheimer's disease onset: unspecified onset Dementia behavioral disturbance: with behavioral disturbance Qualified Code(s): G30.9 - Alzheimer's disease, unspecified; F02.81 - Dementia in other diseases classified elsewhere with behavioral disturbance (5) Status post femoral-popliteal bypass surgery Current Visit: Yes Status: Acute Assessment and plan: Wound currently dry and intact. - Subjective Interval history: Patient is without complaint. He is feeling better and has not days. He knows that he is been incontinent of urine (confirmed by nursing) and he is not sure as to why. He feels like he is thinking well. He denies fevers, chills, sweats, new pain in his lower extremity (in fact, says it is better), etc. Bowels are moving well. Patient has no complaint of chest discomfort, dyspnea, orthopnea, palpitations, nausea or vomiting, constipation or diarrhea, other changes in bowel habits, difficulty with urination, rash or itching, or other new complaints, except as mentioned above. Review of systems is otherwise negative. I discussed management of patient's care with nursing staff. Of note, he had no urinary retention by bladder scan of significance, yesterday. - Constitutional Vitals: Temp Pulse Resp BP Pulse Ox 97.9 F 73 16 153/79 97 11/29/18 07:39 11/29/18 07:39 11/29/18 07:39 11/29/18 07:39 11/29/18 07:39 Exam: Examination: (Except as mentioned above): General: In no apparent distress. Alert and oriented 3. Nondiaphoretic. Head: Atraumatic and normocephalic. Respiratory: No use of accessory muscles. Lungs are clear throughout. Normal airflow. Cardiovascular: Regular rate and rhythm without murmur appreciated. Abdomen: Bowel sounds are normal. No hepatosplenomegaly mass or tenderness appreciated. Obese and therefore difficult to palpate deeply. Extremities: No cyanosis clubbing or edema. Skin: Warm and non-diaphoretic with no new lesions noted. Right foot dressing is not removed at this point. Internal Medicine: Result - Labs CBC & Chem 7: 11/28/18 13:50 11/28/18 13:50 Labs: Short CBC 11/28/18 Range/Units 13:50 WBC 17.9 H (4.3-11.1) K/mcL Hgb 9.7 L (12.9-16.9) g/dL Hct 30.4 L (37.5-50.1) % Plt Count 380 (140-400) K/mcL Neutrophils # 14.1 H (1.6-8.9) K/mcL BMP 11/28/18 13:50 Sodium 135 L Potassium 4.3 Chloride 103 Carbon Dioxide 23 BUN 24 H Creatinine 1.44 H Glucose 114 H Calcium 8.9 - ABG Interpretation ABG results: PT/INR, D-dimer PT 24.8 Seconds (9.4-12.1) H 11/29/18 05:50 Consult Discharge Plan - Plan [facility]errals: [facility] [Primary Care Provider] -
[2018-11-29] MEDS: Cholecalciferol (D-3) 1,000 UNIT (25MCG) TABLET PO SCH (10:15)
[2018-11-29] MEDS: NIFEdipine XL (24 HR) 30 MG TAB.ER.24 PO SCH (10:15)
[2018-11-29] MEDS: Furosemide 40 MG TABLET PO SCH (10:16)
[2018-11-29] MEDS: *HR* Metformin 500 MG TABLET PO SCH ×2 (10:16→22:40)
[2018-11-29] MEDS: Cyanocobalamin (B-12) 1,000 MCG TABLET PO SCH (10:16)
[2018-11-29] MEDS: Aspirin 81 MG TAB.CHEW PO SCH (10:16)
[2018-11-29] MEDS: Lisinopril 20 MG TABLET PO SCH (10:16)
[2018-11-29] MEDS: methIMAzole 5 MG TABLET PO SCH (10:17)
[2018-11-29 11:04] LABS: Basophils # 0.1 K/mcL (0.0-0.2); Basophils % 0.7 %; Eosinophils # 0.6 K/mcL (0.0-0.6); Hematocrit 30.7 % (37.5-50.1); Hemoglobin 9.9 g/dL (12.9-16.9); Immature Granulocytes % 0.9 % (0-4); Lymphocytes # 1.1 K/mcL (0.6-4.6); Lymphocytes % 10.6 %; Mean Corpuscular HGB Conc 32.2 g/dL (31.6-35.5); Mean Corpuscular Hemoglobin 29.8 pg (28.0-33.3); Mean Corpuscular Volume 92.5 fL (83.0-100.0); Mean Platelet Volume 9.1 fL (9.4-12.4); Monocytes # 1.4 K/mcL (0.0-1.3); Monocytes % 12.9 %; Neutrophils # 7.4 K/mcL (1.6-8.9); Platelet Count 331 K/mcL (140-400); Red Blood Count 3.32 M/mcL (4.19-5.50); Red Cell Distribution Width 13.6 % (11.5-14.5); Segmented Neutrophils % 68.9 %; White Blood Count 10.7 K/mcL (4.3-11.1)
[2018-11-29] MEDS: Budesonide/Formoterol 160/4.5 1 PUFF INH IH SCH ×2 (11:54→22:42)
[2018-11-29] MEDS: Tiotropium 18 MCG inhalation IH SCH (11:54)
[2018-11-29] MEDS: Acetaminophen 325 MG TABLET PO PRN (14:34)
[2018-11-29] MEDS ORDERED: *HR* Warfarin 4 MG TABLET PO ONE (18:00)
[2018-11-29] MEDS: PATIENT TAKING PO SCH (22:41)
[2018-11-29] MEDS: Melatonin 3 MG TABLET PO PRN (22:42)
[2018-11-30 05:44] LABS: INR 2.2; Prothrombin Time 25.1 Seconds (9.4-12.1)
[2018-11-30] MEDS: levoFLOXacin 750 MG TABLET PO SCH (08:23)
[2018-11-30] MEDS: Aspirin 81 MG TAB.CHEW PO SCH (08:23)
[2018-11-30] MEDS: Furosemide 40 MG TABLET PO SCH (08:23)
[2018-11-30] MEDS: Cyanocobalamin (B-12) 1,000 MCG TABLET PO SCH (08:23)
[2018-11-30] MEDS: *HR* Metformin 500 MG TABLET PO SCH ×2 (08:23→20:30)
[2018-11-30] MEDS: Cholecalciferol (D-3) 1,000 UNIT (25MCG) TABLET PO SCH (08:23)
[2018-11-30] MEDS: Lisinopril 20 MG TABLET PO SCH (08:23)
[2018-11-30] MEDS: NIFEdipine XL (24 HR) 30 MG TAB.ER.24 PO SCH (08:23)
[2018-11-30] MEDS: methIMAzole 5 MG TABLET PO SCH (08:23)
[2018-11-30] MEDS: Budesonide/Formoterol 160/4.5 1 PUFF INH IH SCH ×2 (08:50→20:32)
[2018-11-30] MEDS: Tiotropium 18 MCG inhalation IH SCH (08:50)
[2018-11-30] MEDS: Acetaminophen 325 MG TABLET PO PRN (10:53)
[2018-11-30] MEDS: *HR* OxyCODONE/APAP 5/325 TABLET PO PRN (11:54)
[2018-11-30 12:13] LABS: Bilirubin,Urine Negative (Negative); Blood,Urine Negative (Negative); Clarity,Urine Clear (Clear); Color,Urine Yellow (Yellow); Glucose,Urine (UA) Normal (Normal); Ketones,Urine Negative (Negative); Leukocyte Esterase,Urine Negative (Negative); Nitrite,Urine Negative (Negative); PH,Urine 5.5 pH Units (5.0-8.0); Protein,Urine Negative (Neg-Trace); Specific Gravity,Urine 1.025 (1.010-1.025); Urobilinogen,Urine Normal (Normal)
--- NOTE | 2018-11-30 14:38 | Internal Med Progress Note ---
Date of Encounter: 11/30/18 Time of Encounter: 14:38 - Assessment and plan (1) Peripheral vascular disease Current Visit: Yes Status: Chronic Assessment and plan: Patient seems stable but will need to be followed because of ecchymosis at toes. (2) Leukocytosis Current Visit: Yes Status: Acute Assessment and plan: No change. Will follow. Qualifiers: Leukocytosis type: unspecified Qualified Code(s): D72.829 - Elevated white blood cell count, unspecified (3) CAD (coronary artery disease) Current Visit: Yes Status: Chronic Assessment and plan: Stable without symptoms or signs. Qualifiers: Coronary Disease-Associated Artery/Lesion type: bypass graft [place] vs. transplanted heart: [place] heart Associated angina: without angina Qualified Code(s): I25.810 - Atherosclerosis of coronary artery bypass graft(s) without angina pectoris (4) Dementia Current Visit: Yes Status: Chronic Assessment and plan: Apparently at baseline. Less incontinence lasting half. Qualifiers: Dementia type: Alzheimer's disease Alzheimer's disease onset: unspecified onset Dementia behavioral disturbance: with behavioral disturbance Qualified Code(s): G30.9 - Alzheimer's disease, unspecified; F02.81 - Dementia in other diseases classified elsewhere with behavioral disturbance (5) Status post femoral-popliteal bypass surgery Current Visit: Yes Status: Acute Assessment and plan: Stable, postoperatively. - Subjective Interval history: Patient is without complaint except right knee pain. He states that this frequently happens to him. The pain is worse at the sides of the knee. He denies fevers chills sweats or other problems. Nursing notes that he has not been incontinent. We reviewed his relatively unremarkable urinalysis. Patient has no complaint of chest discomfort, dyspnea, orthopnea, palpitations, nausea or vomiting, constipation or diarrhea, other changes in bowel habits, difficulty with urination, rash or itching, or other new complaints, except as mentioned above. Review of systems is otherwise negative. I discussed management of patient's care with nursing staff. Of note, he had no urinary retention by bladder scan of significance, yesterday. - Constitutional Vitals: Temp Pulse Resp BP Pulse Ox 98.4 F 81 12 154/81 98 11/30/18 07:00 11/30/18 07:00 11/30/18 08:57 11/30/18 07:00 11/30/18 08:57 Exam: Examination: (Except as mentioned above): General: In no apparent distress. Alert and oriented 3. Nondiaphoretic. Head: Atraumatic and normocephalic. Respiratory: No use of accessory muscles. Lungs are clear throughout. Normal airflow. Cardiovascular: Regular rate and rhythm without murmur appreciated. Abdomen: Bowel sounds are normal. No hepatosplenomegaly mass or tenderness appreciated. Obese and therefore difficult to palpate deeply. Extremities: No cyanosis clubbing or change in edema. His right knee is minimally tender medially but otherwise unremarkable is no erythema, drainage, or warmth. Calf wound is dry and intact seems to be healing well. Foot is wrapped and not examined, today. Skin: Warm and non-diaphoretic with no new lesions noted. Internal Medicine: Result - Labs CBC & Chem 7: 11/29/18 10:42 11/28/18 13:50 Labs: Urine 11/30/18 Range/Units 12:04 Urine Color Yellow (Yellow) Urine Clarity Clear (Clear) Urine pH 5.5 (5.0-8.0) pH Units Ur Specific [place] 1.025 (1.010-1.025) Urine Protein Negative (Neg-Trace) mg/dL Urine Glucose (UA) Normal (Normal) mg/dL - ABG Interpretation ABG results: PT/INR, D-dimer PT 25.1 Seconds (9.4-12.1) H 11/30/18 04:48 Consult Discharge Plan - Plan [facility]errals: [facility] [Primary Care Provider] -
[2018-11-30] MEDS ORDERED: *HR* Warfarin 4 MG TABLET PO ONE (18:00)
[2018-11-30] MEDS: PATIENT TAKING PO SCH (20:30)
[2018-11-30] MEDS: Melatonin 3 MG TABLET PO PRN (20:31)
[2018-12-01 05:22] LABS: INR 3.8
[2018-12-01 05:26] LABS: Prothrombin Time 43.6 Seconds (9.4-12.1)
[2018-12-01] MEDS: Tiotropium 18 MCG inhalation IH SCH (07:44)
[2018-12-01] MEDS: Budesonide/Formoterol 160/4.5 1 PUFF INH IH SCH ×2 (07:45→19:52)
[2018-12-01] MEDS: Lisinopril 20 MG TABLET PO SCH (09:13)
[2018-12-01] MEDS: *HR* Metformin 500 MG TABLET PO SCH ×2 (09:13→20:55)
[2018-12-01] MEDS: methIMAzole 5 MG TABLET PO SCH (09:13)
[2018-12-01] MEDS: Cyanocobalamin (B-12) 1,000 MCG TABLET PO SCH (09:13)
[2018-12-01] MEDS: NIFEdipine XL (24 HR) 30 MG TAB.ER.24 PO SCH (09:13)
[2018-12-01] MEDS: Cholecalciferol (D-3) 1,000 UNIT (25MCG) TABLET PO SCH (09:14)
[2018-12-01] MEDS: Furosemide 40 MG TABLET PO SCH (09:14)
[2018-12-01] MEDS: Aspirin 81 MG TAB.CHEW PO SCH (09:14)
--- NOTE | 2018-12-01 10:29 | Internal Med Progress Note ---
Date of Encounter: 12/01/18 Time of Encounter: 10:27 - Assessment and plan (1) Peripheral vascular disease Current Visit: Yes Status: Chronic Assessment and plan: No acute issues. Patient continues to persist patient therapy and progressed well. Right leg remains warm to touch. No reports of claudication. Patient with recent femoropopliteal bypass and right great toe amputation. Dressing to right foot remains dry and intact. Unable to evaluate CV to right foot due to dressing but patient is seen daily by wound care Progressing well with therapy. We will continue with current plan of care (2) Status post femoral-popliteal bypass surgery Current Visit: Yes Status: Acute Assessment and plan: Right groin and medial leg surgical incision remains healthy and intact with gerson in place. CV checks on legs remain normal. No reports claudication. Patient dissipated therapy and progressed well. (3) Dementia Current Visit: Yes Status: Chronic Assessment and plan: No reports behavior issues per staff. Patient has been cooperative and participating in therapy. She reports patient has had a slight increase in nocturnal confusion over the past few days no behavior issues reported. We will continue with current medications Qualifiers: Dementia type: Alzheimer's disease Alzheimer's disease onset: unspecified onset Dementia behavioral disturbance: with behavioral disturbance Qualified Code(s): G30.9 - Alzheimer's disease, unspecified; F02.81 - Dementia in other diseases classified elsewhere with behavioral disturbance (4) COPD exacerbation Current Visit: No Status: Chronic Assessment and plan: No acute issues. Lungs are clear with diminished bases. Patient denies any dyspnea or productive cough. We will continue with current medications (5) Ischemic cardiomyopathy Current Visit: No Status: Acute Assessment and plan: No acute issues. Patient denies any chest discomforts, palpitations or dyspnea. Vital signs stable. We will continue with current medications (6) CAD (coronary artery disease) Current Visit: Yes Status: Chronic Assessment and plan: No acute issues. Patient denies any chest palpitations or discomforts. Vital signs are stable. We will continue with current medications Qualifiers: Coronary Disease-Associated Artery/Lesion type: bypass graft [place] vs. transplanted heart: [place] heart Associated angina: without angina Qualified Code(s): I25.810 - Atherosclerosis of coronary artery bypass graft(s) without angina pectoris (7) Right knee pain Current Visit: Yes Status: Chronic Assessment and plan: Patient continues with complaints of pain to his right knee which he states has been a chronic issue due to arthritis. Right knee remains slightly swollen but no erythema noted. Patient continues to mobilize with therapy Qualifiers: Chronicity: chronic Qualified Code(s): M25.561 - Pain in right knee; G89.29 - Other chronic pain - Time Spent With Patient less than 15 minutes - Subjective Interval history: Patient currently denies any issues although patient continues to c/o increased pain to his right knee. Patient does state that this is been a chronic issue to arthritis. Patient continues to be a poor historian having difficulty with sia rt term memory. Nursing reports that he has had an increase in nocturnal confusion over the last two days. Patient has been cooperative with care with no behavior issues reported per nursing. - Constitutional Vitals: Temp Pulse Resp BP Pulse Ox 97.9 F 80 19 141/79 98 12/01/18 06:48 12/01/18 06:48 12/01/18 07:50 12/01/18 06:48 12/01/18 07:50 General appearance: Present: A&O X 2, pleasant Exam: Patient is appropriate during conversation but become slightly confused with complex questions - Head Head exam: Present: atraumatic, normocephalic - Eye Eye exam: Present: PERRL, conjuntiva pink, sclera anicteric Pupils: Present: PERRL - Neck Neck exam general surgery: Present: supple, trachea midline. Absent: lymphadenopathy - Respiratory Respiratory exam: Present: decreased breath sounds, CTAB. Absent: accessory muscle use, rales, rhonchi, wheezes - Cardiovascular Cardiovascular exam: Present: RRR, +S1, +S2, systolic murmur. Absent: diastolic murmur, gallop, rubs - GI/Abdominal GI/Abdominal exam: Present: normal bowel sounds, soft, no peritoneal signs. Absent: distended, tenderness - Extremities Exam Extremities exam: Present: warm, radial pulses palpable and symmetrical. Absent: calf tenderness, cyanotic, pedal edema Additional comments: Patient stabilized to right groin and right medial thigh appears dry and intact. No erythema or ecchymosis noted. Leg remains warm to touch. Dressing to right foot remains dry and intact. Unable to check CMV status of right toes due to dressing in place - Neurological Exam Neurological exam: Present: CN II-XII intact, oriented X3, no focal deficits. Absent: pronater drift, facial droop, speech deficit - Skin Skin exam: Present: dry, intact Internal Medicine: Result - Labs CBC & Chem 7: 11/29/18 10:42 11/28/18 13:50 Labs: Urine 11/30/18 Range/Units 12:04 Urine Color Yellow (Yellow) Urine Clarity Clear (Clear) Urine pH 5.5 (5.0-8.0) pH Units Ur Specific [place] 1.025 (1.010-1.025) Urine Protein Negative (Neg-Trace) mg/dL Urine Glucose (UA) Normal (Normal) mg/dL - ABG Interpretation ABG results: PT/INR, D-dimer PT 43.6 Seconds (9.4-12.1) H* D 12/01/18 04:44 Consult Discharge Plan - Plan [facility]errals: [facility] [Primary Care Provider] -
[2018-12-01] MEDS: *HR* OxyCODONE/APAP 5/325 TABLET PO PRN (11:44)
[2018-12-01] MEDS: Melatonin 3 MG TABLET PO PRN (20:55)
[2018-12-01] MEDS: Acetaminophen 325 MG TABLET PO PRN (20:56)
[2018-12-01] MEDS: PATIENT TAKING PO SCH (20:58)
[2018-12-02] MEDS ORDERED: Nitroglycerin 0.4 MG TAB.SUBL SL PRN (02:10)
[2018-12-02 02:30] LABS: INR 3.5; Prothrombin Time 39.7 Seconds (9.4-12.1)
[2018-12-02] MEDS: Cholecalciferol (D-3) 1,000 UNIT (25MCG) TABLET PO SCH (08:53)
[2018-12-02] MEDS: NIFEdipine XL (24 HR) 30 MG TAB.ER.24 PO SCH (08:54)
[2018-12-02] MEDS: levoFLOXacin 750 MG TABLET PO SCH (08:54)
[2018-12-02] MEDS: Aspirin 81 MG TAB.CHEW PO SCH (08:54)
[2018-12-02] MEDS: Cyanocobalamin (B-12) 1,000 MCG TABLET PO SCH (08:54)
[2018-12-02] MEDS: *HR* Metformin 500 MG TABLET PO SCH ×2 (08:54→20:39)
[2018-12-02] MEDS: Lisinopril 20 MG TABLET PO SCH (08:54)
[2018-12-02] MEDS: Furosemide 40 MG TABLET PO SCH (08:54)
[2018-12-02] MEDS: methIMAzole 5 MG TABLET PO SCH (08:54)
[2018-12-02] MEDS: Tiotropium 18 MCG inhalation IH SCH (11:00)
[2018-12-02] MEDS: Budesonide/Formoterol 160/4.5 1 PUFF INH IH SCH ×2 (11:00→20:49)
--- NOTE | 2018-12-02 12:14 | Internal Med Progress Note ---
Date of Encounter: 12/02/18 Time of Encounter: 12:13 - Assessment and plan (1) CAD (coronary artery disease) Current Visit: Yes Status: Chronic Assessment and plan: Stable. Denies chest pain. Continue current medication. Qualifiers: Coronary Disease-Associated Artery/Lesion type: bypass graft [place] vs. transplanted heart: [place] heart Associated angina: without angina Qualified Code(s): I25.810 - Atherosclerosis of coronary artery bypass graft(s) without angina pectoris (2) Peripheral vascular disease Current Visit: Yes Status: Chronic Assessment and plan: Status post right great toe amputation and fem- pop bypass. (3) Status post femoral-popliteal bypass surgery Current Visit: Yes Status: Acute Assessment and plan: Follow up with vascular scheduled. (4) Dementia Current Visit: Yes Status: Chronic Assessment and plan: Continue supportive care. Assist with ADLs. Progressive disease. Qualifiers: Dementia type: Alzheimer's disease Alzheimer's disease onset: unspecified onset Dementia behavioral disturbance: with behavioral disturbance Qualified Code(s): G30.9 - Alzheimer's disease, unspecified; F02.81 - Dementia in other diseases classified elsewhere with behavioral disturbance - Time Spent With Patient less than 15 minutes - Subjective Interval history: Participating well with therapy. Ambulating with Walker. Denies pain or concerns at this time. Denies fever, chills, nausea vomiting or diarrhea. Denies shortness of breath or chest pain. - Constitutional Vitals: Temp Pulse Resp BP Pulse Ox 98.0 F 67 16 129/72 93 12/02/18 07:00 12/02/18 07:00 12/02/18 07:00 12/02/18 07:00 12/02/18 07:00 General appearance: Present: A&O X 2, pleasant, no acute distress - Head Head exam: Present: atraumatic, normocephalic - Eye Eye exam: Present: PERRL, conjuntiva pink, sclera anicteric Pupils: Present: PERRL - Neck Neck exam general surgery: Present: supple, trachea midline. Absent: lymphadeno behzad - Respiratory Respiratory exam: Present: CTAB. Absent: accessory muscle use, rales, rhonchi, wheezes - Cardiovascular Cardiovascular exam: Present: irregular rhythm, +S1, +S2. Absent: diastolic murmur, gallop, rubs, systolic murmur - GI/Abdominal GI/Abdominal exam: Present: normal bowel sounds, soft, no peritoneal signs. Absent: distended, tenderness - Extremities Exam Extremities exam: Present: warm, radial pulses palpable and symmetrical. Absent: calf tenderness, cyanotic, pedal edema - Neurological Exam Neurological exam: Present: CN II-XII intact, oriented X3, no focal deficits. Absent: pronater drift, facial droop, speech deficit - Skin Skin exam: Present: dry, intact Additional comments: Right foot dressing dry and intact Internal Medicine: Result - Labs CBC & Chem 7: 11/29/18 10:42 11/28/18 13:50 Labs: Cardiac Enzymes 12/02/18 12/02/18 Range/Units 02:20 08:34 Troponin I < 0.03 < 0.03 (< 0.04) ng/mL - ABG Interpretation ABG results: PT/INR, D-dimer PT 39.7 Seconds (9.4-12.1) H 12/02/18 02:20 Consult Discharge Plan - Plan Referrals: Emma Trinh MD [Non-Partnered Physician] - 12/08/18 10:25 am [facility] [Primary Care Provider[facility] -
--- NOTE | 2018-12-02 16:21 | Electrocardiograph Report ---
[place] [id number] Test Date: 2018-12-02 Pat Name: Damián Gaspar Department: 2001 Room: 107 Gender: M Caving Guide: : 1945 Requested By: Phil Solitario Order Number: [id number] Reading MD: Brielle Mueller Measurements Intervals [place] Rate: 74 P: 42 ID: [id number] QRS: -74 QRSD: 162 T: 77 QT: 455 QTc: 483 Interpretive Statements SINUS RHYTHM POSSIBLE LEFT ATRIAL ENLARGEMENT [-0.1mV P WAVE IN V1/V2] INTRAVENTRICULAR CONDUCTION DELAY [130+ ms QRS DURATION] Electronically Signed On 12-02-2018 16:19:09 EDT by Brielle Mueller
[2018-12-02] MEDS: PATIENT TAKING PO SCH (20:38)
[2018-12-02] MEDS: Melatonin 3 MG TABLET PO PRN (20:39)
[2018-12-03] MEDS: *HR* OxyCODONE/APAP 5/325 TABLET PO PRN (04:23)
[2018-12-03 05:56] LABS: Basophils # 0.1 K/mcL (0.0-0.2); Basophils % 0.6 %; Eosinophils # 1.1 K/mcL (0.0-0.6); Eosinophils % 11.7 %; Hematocrit 28.5 % (37.5-50.1); Hemoglobin 9.1 g/dL (12.9-16.9); Immature Granulocytes % 0.5 % (0-4); Lymphocytes % 10.8 %; Mean Corpuscular HGB Conc 31.9 g/dL (31.6-35.5); Mean Corpuscular Hemoglobin 29.1 pg (28.0-33.3); Mean Corpuscular Volume 91.1 fL (83.0-100.0); Mean Platelet Volume 9.3 fL (9.4-12.4); Monocytes # 1.1 K/mcL (0.0-1.3); Monocytes % 11.7 %; Platelet Count 284 K/mcL (140-400); Red Blood Count 3.13 M/mcL (4.19-5.50); Red Cell Distribution Width 13.6 % (11.5-14.5); Segmented Neutrophils % 64.7 %; White Blood Count 9.3 K/mcL (4.3-11.1)
[2018-12-03 06:01] LABS: INR 2.8
[2018-12-03 06:12] LABS: Alanine Aminotransferase 17 Units/L (7-52); Albumin 3.2 g/dL (3.5-5.7); Albumin/Globulin Ratio 1.1 (1.1-2.2); Alkaline Phosphatase 58 Units/L (34-104); Aspartate Amino Transferase 13 Units/L (13-39); BUN/Creatinine Ratio 27 (6-26); Bilirubin,Total 0.6 mg/dL (0.3-1.0); Blood Urea Nitrogen 27 mg/dL (8-23); Calcium 8.5 mg/dL (8.6-10.3); Carbon Dioxide 27 mEq/L (23-29); Chloride 99 mEq/L (98-107); Glucose 113 mg/dL (70-105); Osmolality,Calculated 286 (280-300); Potassium 3.4 mEq/L (3.5-5.1); Sodium 135 mEq/L (136-145); Total Protein 6.2 g/dL (6.4-8.9); eGFR For African Americans > 60 (> 60); eGFR For Non-African Americans > 60 (> 60)
[2018-12-03] MEDS: *HR* Metformin 500 MG TABLET PO SCH ×2 (09:19→19:58)
[2018-12-03] MEDS: Cholecalciferol (D-3) 1,000 UNIT (25MCG) TABLET PO SCH (09:19)
[2018-12-03] MEDS: Cyanocobalamin (B-12) 1,000 MCG TABLET PO SCH (09:20)
[2018-12-03] MEDS: Aspirin 81 MG TAB.CHEW PO SCH (09:20)
[2018-12-03] MEDS: methIMAzole 5 MG TABLET PO SCH (09:20)
[2018-12-03] MEDS: Furosemide 40 MG TABLET PO SCH (09:20)
[2018-12-03] MEDS: NIFEdipine XL (24 HR) 30 MG TAB.ER.24 PO SCH (09:20)
[2018-12-03] MEDS: Lisinopril 20 MG TABLET PO SCH (09:20)
[2018-12-03] MEDS: Budesonide/Formoterol 160/4.5 1 PUFF INH IH SCH ×2 (09:59→20:25)
[2018-12-03] MEDS: Tiotropium 18 MCG inhalation IH SCH (09:59)
--- NOTE | 2018-12-03 10:08 | Rehab Psychology Progress Note ---
Date of Encounter: 12/03/18 Time of Encounter: 09:30 (Bedside) Subjective - Patient Report Patient Report: Stated he was ready to go back home. He stated he can't remember anything. He further noted he was leary of things going bad. He feels therapy is going well and has learned how to get around. - Symptoms Symptoms: No crying today. smiling when discussing going home and stated he will have care from a paid person and his . Objective - WHODAS Functional Impairment Concentration, Problem-solving, Communication: Moderate Social Functioning: Mild - Comments Functional Status Comments: He was able to initiate conversation but had some difficulty staying on topic. Occasional confusion noted during conversation. Did not recall meeting last week. - Mental Status Mental Status Changes: OX2. Did know month and today. Able to follow simple 1 step commands. Assessment and Plan - Diagnosis (1) Adjustment disorder with depressed mood (2) Major neurocognitive disorder due to multiple etiologies without behavioral disturbance - Response to Treatment Response to Treatment: Improved - Prognosis Prognosis: Fair - Treatment Plan Treatment Plan Recommendations: Continue Current Plan/Goals Changes in Treatment Plan Goals: Mood seems more stable and increase awareness noted today. No behavioral issues noted. Treatment Frequency: weekly Next Session Date: 12/10/18 Procedures - Intervention Interventions: Cognitive/Behavioral Therapy - Modality Modality: Psychotherapy 30 minutes - Participants Therapy Participant: Patient - Session Time Session Start Time: :30 Session Stop Time: 10:00
--- NOTE | 2018-12-03 11:56 | Internal Med Progress Note ---
Date of Encounter: 12/03/18 Time of Encounter: 11:55 - Assessment and plan (1) CAD (coronary artery disease) Current Visit: Yes Status: Chronic Assessment and plan: Stable. Denies chest pain. Continue current medication. Qualifiers: Coronary Disease-Associated Artery/Lesion type: bypass graft [place] vs. transplanted heart: [place] heart Associated angina: without angina Qualified Code(s): I25.810 - Atherosclerosis of coronary artery bypass graft(s) without angina pectoris (2) Peripheral vascular disease Current Visit: Yes Status: Chronic Assessment and plan: Status post right great toe amputation and fem- pop bypass. (3) Status post femoral-popliteal bypass surgery Current Visit: Yes Status: Acute Assessment and plan: Follow up with vascular scheduled. (4) Dementia Current Visit: Yes Status: Chronic Assessment and plan: Continue supportive care. Assist with ADLs. Progressive disease. Qualifiers: Dementia type: Alzheimer's disease Alzheimer's disease onset: unspecified onset Dementia behavioral disturbance: with behavioral disturbance Qualified Code(s): G30.9 - Alzheimer's disease, unspecified; F02.81 - Dementia in other diseases classified elsewhere with behavioral disturbance - Time Spent With Patient less than 15 minutes - Subjective Interval history: Participating well with therapy. Ambulating with Walker. Denies pain or concerns at this time. Denies fever, chills, nausea vomiting or diarrhea. Denies shortness of breath or chest pain. - Constitutional Vitals: Temp Pulse Resp BP Pulse Ox 98.0 F 72 15 155/87 97 12/03/18 09:00 12/03/18 09:00 12/03/18 09:59 12/03/18 09:00 12/03/18 09:59 General appearance: Present: A&O X 2, pleasant, no acute distress - Head Head exam: Present: atraumatic, normocephalic - Eye Eye exam: Present: PERRL, conjuntiva pink, sclera anicteric Pupils: Present: PERRL - Neck Neck exam general surgery: Present: supple, trachea midline. Absent: lymphadeno behzad - Respiratory Respiratory exam: Present: CTAB. Absent: accessory muscle use, rales, rhonchi, wheezes - Cardiovascular Cardiovascular exam: Present: RRR, +S1, +S2. Absent: diastolic murmur, gallop, rubs, systolic murmur - GI/Abdominal GI/Abdominal exam: Present: normal bowel sounds, soft, no peritoneal signs. Absent: distended, tenderness - Extremities Exam Extremities exam: Present: warm, radial pulses palpable and symmetrical. Ab sent: calf tenderness, cyanotic, pedal edema - Neurological Exam Neurological exam: Present: CN II-XII intact, oriented X3, no focal deficits. Absent: pronater drift, facial droop, speech deficit - Skin Skin exam: Present: dry, intact Additional comments: Right foot dressing dry and intact Internal Medicine: Result - Labs CBC & Chem 7: 12/03/18 05:08 12/03/18 05:08 Labs: Short CBC 12/03/18 Range/Units 05:08 WBC 9.3 (4.3-11.1) K/mcL Hgb 9.1 L (12.9-16.9) g/dL Hct 28.5 L (37.5-50.1) % Plt Count 284 (140-400) K/mcL Neutrophils # 6.0 (1.6-8.9) K/mcL BMP 12/03/18 05:08 Sodium 135 L Potassium 3.4 L Chloride 99 Carbon Dioxide 27 BUN 27 H Creatinine 0.99 Glucose 113 H Calcium 8.5 L Cardiac Enzymes 12/02/18 Range/Units 04:28 Troponin I < 0.03 (< 0.04) ng/mL Liver Function 12/03/18 Range/Units 05:08 Total Bilirubin 0.6 (0.3-1.0) mg/dL AST 13 (13-39) Units/L ALT 17 (7-52) Units/L Alkaline Phosphatase 58 (34-104) Units/L Albumin 3.2 L (3.5-5.7) g/dL - ABG Interpretation ABG results: PT/INR, D-dimer PT 32.0 Seconds (9.4-12.1) H 12/03/18 05:08 Consult Discharge Plan - Plan Referrals: Emma Tirnh MD [Non-Partnered Physician] - 12/08/18 10:25 am [facility] [Primary Care Provider[facility] -
[2018-12-03] MEDS ORDERED: *HR* Warfarin 3 MG TABLET PO ONE (18:00)
[2018-12-03] MEDS: PATIENT TAKING PO SCH (19:58)
[2018-12-04 05:34] LABS: INR 2.6; Prothrombin Time 29.1 Seconds (9.4-12.1)
[2018-12-04] MEDS: Tiotropium 18 MCG inhalation IH SCH (07:20)
[2018-12-04] MEDS: Budesonide/Formoterol 160/4.5 1 PUFF INH IH SCH (07:21)
[2018-12-04] MEDS: Cholecalciferol (D-3) 1,000 UNIT (25MCG) TABLET PO SCH (08:47)
[2018-12-04] MEDS: Acetaminophen 325 MG TABLET PO PRN (08:48)
[2018-12-04] MEDS: NIFEdipine XL (24 HR) 30 MG TAB.ER.24 PO SCH (08:48)
[2018-12-04] MEDS: Furosemide 40 MG TABLET PO SCH (08:49)
[2018-12-04] MEDS: Lisinopril 20 MG TABLET PO SCH (08:49)
[2018-12-04] MEDS: methIMAzole 5 MG TABLET PO SCH (08:49)
[2018-12-04] MEDS: Cyanocobalamin (B-12) 1,000 MCG TABLET PO SCH (08:49)
[2018-12-04] MEDS: Aspirin 81 MG TAB.CHEW PO SCH (08:49)
[2018-12-04] MEDS: *HR* Metformin 500 MG TABLET PO SCH (08:49)
[2018-12-04] MEDS: levoFLOXacin 750 MG TABLET PO SCH (08:49)
--- NOTE | 2018-12-04 09:14 | Discharge Summary ---
Date of Encounter: 12/04/18 Time of Encounter: 10:56 - Discharge Diagnosis (1) Peripheral vascular disease Priority: Primary Status: Chronic Comments: Patient had a right femoropopliteal performed with his surgical incision to the right groin and right medial thigh remained healthy and intact. Patient has had a right great toe amputation with wound appearing healthy and healing. Dressing to right foot remains dry and intact. Patient denies any claudication symptoms. Leg is warm to touch. Patient is continue follow-up with his vascular surgeon after discharge. Patient will be discharged with home health services where they will monitor his wound and dressing. Patient is to continue with outpatient wound care. (2) Status post femoral-popliteal bypass surgery Priority: Secondary Status: Acute Comments: Patient had a right femoropopliteal performed with his surgical incision to the right groin and right medial thigh remained healthy and intact. Patient has had a right great toe amputation with wound appearing healthy and healing. Dressing to right foot remains dry and intact. Patient denies any claudication symptoms. Leg is warm to touch. Patient is continue follow-up with his vascular surgeon after discharge. Patient will be discharged with home health services where they will monitor his wound and dressing. Patient is to continue with outpatient wound care. (3) Dementia Priority: Secondary Status: Chronic Comments: Patient has been cooperative with staff during therapy. Patient continues with poor short-term memory recall. No behavior issues reported per nursing. Patient to continue with current medications after discharge and follow-up with PCP Qualifiers: Dementia type: Alzheimer's disease Alzheimer's disease onset: unspecified onset Dementia behavioral disturbance: with behavioral disturbance Qualified Code(s): G30.9 - Alzheimer's disease, unspecified; F02.81 - Dementia in other diseases classified elsewhere with behavioral disturbance (4) COPD exacerbation Priority: Secondary Status: Chronic Comments: No acute issues during his stay of facility. Denies any dyspnea and tolerated therapy well. We will continue with current home medications and follow-up with PCP (5) Ischemic cardiomyopathy Priority: Secondary Status: Acute Comments: No acute issues during his stay of facility. Patient has denied any chest discomforts or palpitations. No edema noted. Patient is continue with his current medications and follow-up with PCP and cardiology (6) CAD (coronary artery disease) Priority: Secondary Status: Chronic Comments: No acute issues during his stay of facility. Patient has denied any chest discomforts or palpitations. No edema noted. Patient is continue with his current medications and follow-up with PCP and cardiology Qualifiers: Coronary Disease-Associated Artery/Lesion type: bypass graft [place] vs. transplanted heart: [place] heart Associated angina: without angina Qualified Code(s): I25.810 - Atherosclerosis of coronary artery bypass graft(s) without angina pectoris (7) Right knee pain Priority: Secondary Status: Chronic Comments: Continues with complaints of right knee pain which appears slightly swollen. Patient with a long history of osteoarthritis to the right knee. No erythema noted. Patient is able to bear weight and mobilize well. We will continue with current medications and follow-up with PCP Qualifiers: Chronicity: chronic Qualified Code(s): M25.561 - Pain in right knee; G89.29 - Other chronic pain Hospital course: Mr. Gaspar is a 73 year old male, who was transferred here from an [facility] hospital where he was treated for severe peripheral vascular disease. Patient had presented with a ischemic toes and after evaluation had received a right femoropopliteal and a right femoral endarterectomy. Patient also had a right great toe amputation, which has a dressing to right foot dry and intact. Patient's recovery at Hospital has been complicated with his confusion related to his dementia. Patient currently appears relaxed and has been cooperative while his is present. Nurse reports patient has had some issues with compliance during the night due to confusion, but no behavior issues reported. Patient currently denies any discomforts and his pain has been well tolerated with current oral medications. Right groin and right leg surgical incisions appear healthy and intact. Right foot and distal leg remain warm to touch with color. Dressing to right foot remains dry and intact and has been changed several times weekly per wound care. Patient has dissipated with therapy and progressed well during his stay. Patient will continue with this therapy through home health services. Patient is to continue follow-up with cardiovascular surgeon and ECP after discharge. He will be discharged with prescriptions for any new medications at home and started Patient with a medical history of COPD, diabetes, hypertension, dementia, CVA. Patient also has had a recent right hip replacement on 10/09/18. Discharge discussed with: patient Time spent discussing smoking cessation with patient: 3 to 10 minutes - Time Spent with Patient Total time spent providing and/or coordinating discharge services: Time spent: Less than 30 minutes - Discharge Medications Prescriptions: No Action Lisinopril [Zestril] 40 mg PO DAILY Budesonide/Formoterol 160/4.5 [Symbicort 160/4.5] 2 puff IH BIDR Acetaminophen [Tylenol] 650 mg PO Q6H PRN PRN Reason: Mild Pain Pravastatin Sodium [Pravachol] 80 mg PO HS Metformin HCl [Glucophage] 1,000 mg PO BID Albuterol Sulfate [Proair Respiclick] 1 puff IH Q6H PRN PRN Reason: Wheezing Donepezil [Aricept] 10 mg PO HS Cyanocobalamin (B-12) [Vitamin B12] 1,000 mcg PO DAILY Cholecalciferol (D-3) [Vitamin D] 1,000 unit PO DAILY Carvedilol [Coreg] 25 mg PO BID Aspirin 81 mg PO DAILY Oxycodone HCl/Acetaminophen [Percocet 5-325 mg Tablet] 1 each PO Q6H PRN PRN Reason: Moderate Pain Warfarin 6 mg PO QPM Povidone-Iodine 1 each TP BID Melatonin [Melatin] 3 mg PO HS levoFLOXacin [Levaquin] 750 mg PO Q48H Clindamycin [Cleocin] 3 cap PO Q8H Carboxymethylcellulose Sodium [Refresh Celluvisc] Ergocalciferol (VITAMIN D2) [Drisdol (50,000 Unit)] 50,000 unit PO QWEEK Escitalopram [Lexapro] 20 mg PO DAILY Furosemide [Lasix] 20 mg PO BID Memantine [Namenda] 10 mg PO BID Methimazole [Tapazole] 5 mg PO DAILY NIFEdipine XL (24 HR) [Procardia XL] 30 mg PO DAILY Pantoprazole Sodium [Protonix] 40 mg PO DAILY Tiotropium [Spiriva] 18 mcg IH DAILY Home Medications: Acetaminophen [Tylenol] 650 mg PO Q6H PRN 03/22/15 [History] Albuterol Sulfate [Proair Respiclick] 1 puff IH Q6H PRN 03/22/15 [History] Budesonide/Formoterol 160/4.5 [Symbicort 160/4.5] 2 puff IH BIDR 03/22/15 [History] Lisinopril [Zestril] 40 mg PO DAILY 03/22/15 [History] Metformin HCl [Glucophage] 1,000 mg PO BID 03/22/15 [History] Pravastatin Sodium [Pravachol] 80 mg PO HS 03/22/15 [History] Aspirin 81 mg PO DAILY 11/25/18 [History] Carboxymethylcellulose Sodium [Refresh Celluvisc] 11/25/18 [History] Carvedilol [Coreg] 25 mg PO BID 11/25/18 [History] Cholecalciferol (D-3) [Vitamin D] 1,000 unit PO DAILY 11/25/18 [History] Clindamycin [Cleocin] 3 cap PO Q8H 11/25/18 [History] Cyanocobalamin (B-12) [Vitamin B12] 1,000 mcg PO DAILY 11/25/18 [History] Donepezil [Aricept] 10 mg PO HS 11/25/18 [History] Ergocalciferol (VITAMIN D2) [Drisdol (50,000 Unit)] 50,000 unit PO QWEEK 11/25/18 [History] Escitalopram [Lexapro] 20 mg PO DAILY 11/25/18 [History] Furosemide [Lasix] 20 mg PO BID 11/25/18 [History] Melatonin [Melatin] 3 mg PO HS 11/25/18 [History] Memantine [Namenda] 10 mg PO BID 11/25/18 [History] Methimazole [Tapazole] 5 mg PO DAILY 11/25/18 [History] NIFEdipine XL (24 HR) [Procardia XL] 30 mg PO DAILY 11/25/18 [History] Oxycodone HCl/Acetaminophen [Percocet 5-325 mg Tablet] 1 each PO Q6H PRN 11/25/18 [History] Pantoprazole Sodium [Protonix] 40 mg PO DAILY 11/25/18 [History] Povidone-Iodine 1 each TP BID 11/25/18 [History] Tiotropium [Spiriva] 18 mcg IH DAILY 11/25/18 [History] Warfarin 6 mg PO QPM 11/25/18 [History] levoFLOXacin [Levaquin] 750 mg PO Q48H 11/25/18 [History] Allergies/Adverse Reactions: Allergy/AdvReac Type Severity Reaction Status Date / Time atorvastatin Allergy Rash Verified 03/22/15 16:23 rosuvastatin Allergy Rash Verified 03/22/15 16:23 simvastatin Allergy Rash Verified 03/22/15 16:23 Date of admission: 11/24/18 16:23 [facility] care physician: [facility] Consults: 11/24/18 17:19 Consult to Nutrition [CONS] Routine Comment: Consulting Provider: NUTRITION Reason for Dietary Consult: PO Supplementation Consult to Nuclear Technologist [CONS] Routine Reason for SW Consult: Discharge Eval 11/24/18 18:26 Consult to Occupational Therapy [CONS] Routine Comment: Evaluate, develop and implement POC Reason for Consult: right great toe amputation Right hip replacement approx 1 month ago Does patient have active BEDREST order?: No Is patient medically & hemodynamically stable?: Yes Patient assessed for mobility or mobilized this visit?: No Consult to Physical Therapy [CONS] Routine Comment: Evaluate, develop and implement POC Reason for Consult: right great toe amputation Right hip replacement approx 1 month ago Does patient have active BEDREST order?: No Is patient medically & hemodynamically stable?: Yes Patient assessed for mobility or mobilized this visit?: No Consult to Recreational Therapy [CONS] Routine Comment: Evaluate, develop and implement POC Consult to Nuclear Technologist [CONS] Routine Reason for SW Consult: rehab 11/25/18 08:35 Consult to Psychology [CONS] Routine Consulting Provider: Phil Solitario Reason for Consult: agitation, dementia Time Notified: 08:36 Call Completed: Yes 11/25/18 10:16 Consult to Wound Care [CONS] Routine Reason for Consult: Right great toe wound s/p amputation Time Notified: 10:18 Call Completed: Yes Discharging clinician: Pilar Romero - Constitutional Vitals: Temp Pulse Resp BP Pulse Ox 97.8 F 76 16 151/82 96 12/04/18 07:54 12/04/18 07:54 12/04/18 07:54 12/04/18 07:54 12/04/18 07:54 General appearance: Present: A&O X 2, pleasant, no acute distress - Head Head exam: Present: atraumatic, normocephalic - Eye Eye exam: Present: PERRL, conjuntiva pink, sclera anicteric Pupils: Present: PERRL - Neck Neck exam general surgery: Present: supple, trachea midline. Absent: lymphadenopathy - Respiratory Respiratory exam: Present: decreased breath sounds, CTAB. Absent: accessory muscle use, rales, rhonchi, wheezes - Cardiovascular Cardiovascular exam: Present: RRR, +S1, +S2. Absent: diastolic murmur, gallop, rubs, systolic murmur - GI/Abdominal GI/Abdominal exam: Present: normal bowel sounds, soft, no peritoneal signs. Absent: distended, tenderness - Extremities Exam Extremities exam: Present: normal capillary refill, normal inspection, warm, radial pulses palpable and symmetrical. Absent: calf tenderness, cyanotic, pedal edema Additional comments: Right groin and right medial thigh surgical incisions appear healthy and intact. Right foot and ankle dressing is dry and intact. - Neurological Exam Neurological exam: Present: CN II-XII intact, no focal deficits. Absent: pronater drift, facial droop, speech deficit - Skin Skin exam: Present: dry, intact - Patient Status Disposition: Home Health Service Condition: Good Functional capacity at discharge: uses cane/walker Overall status at discharge: patient is progressing back to baseline - Discharge Instructions Follow Up With: Emma Trinh MD [Non-Partnered Physician] - 12/08/18 10:25 am [facility] [[facility] Care Provider[facility] - - Diet and Activity Activity: ambulate only with your walker, as per physical therapy, increase activity as tolerated Diet: low fat, low cholesterol, low salt diet
--- NOTE | 2018-12-04 12:05 | Physician Discharge Referral ---
Home Health/Hosp Referral Info Transfer to: Home Health Provider in Charge Post Discharge: PCP - Diagnosis (1) Peripheral vascular disease Priority: Primary Status: Chronic (2) Status post femoral-popliteal bypass surgery Priority: Secondary Status: Acute (3) Dementia Priority: Secondary Status: Chronic (4) COPD exacerbation Priority: Secondary Status: Chronic (5) Ischemic cardiomyopathy Priority: Secondary Status: Acute (6) CAD (coronary artery disease) Priority: Secondary Status: Chronic (7) Right knee pain Priority: Secondary Status: Chronic - Respiratory Orders Smoking Cessation: Smoking cessation has been advised. For more information, call the [place] Tobacco Quit Line at 5-851-GHDH-NOW. - Dressing/Wound Care Site: daily wet to dry dressing changes to right foot. Pack with nromal saline wet to dry and cover with gauze and wrap with Coban wrap. - Diet/Nutrition Diet/Nutrition Orders: Regular, No Added Salt (JHONNY), Cardiac - Activity Activity Orders: Walker - Services Needed Following services are medically necessary services: Nursing, Physical Therapy, Occupational Therapy - Transfer Medications Prescriptions: Clindamycin HCl [Cleocin HCl] 450 mg PO TID #120 capsule Transmission Status[facility] Levofloxacin [Levaquin] 750 mg PO Q2D #10 tablet Transmission Status: Pending to [employer] [facility] Lidocaine Patch [Lidoderm 5% patch] 1 each TP DAILY #14 adh..patch Transmission Status: [facility] Nitroglycerin 0.4 mg SL PRN PRN #1 bottle PRN Reason: Chest Pain Transmission Status: [facility] [employer] [facility] Oxycodone HCl/Acetaminophen [Percocet 5-325 mg Tablet] 1 each PO Q6HR PRN 7 Days #20 tablet PRN Reason: Pain Prescription Printed Methimazole [Tapazole] 5 mg PO DAILY #30 tablet Transmission Status: Pending to [facility] [employer] [facility] Home Medications: Acetaminophen [Tylenol] 650 mg PO Q6H PRN 03/22/15 [History] Albuterol Sulfate [Proair Respiclick] 1 puff IH Q6H PRN 03/22/15 [History] Budesonide/Formoterol 160/4.5 [Symbicort 160/4.5] 2 puff IH BIDR 03/22/15 [History] Lisinopril [Zestril] 40 mg PO DAILY 03/22/15 [History] Metformin HCl [Glucophage] 1,000 mg PO BID 03/22/15 [History] Pravastatin Sodium [Pravachol] 80 mg PO HS 03/22/15 [History] Aspirin 81 mg PO DAILY 11/25/18 [History] Carboxymethylcellulose Sodium [Refresh Celluvisc] 11/25/18 [History] Carvedilol [Coreg] 25 mg PO BID 11/25/18 [History] Cholecalciferol (D-3) [Vitamin D] 1,000 unit PO DAILY 11/25/18 [History] Clindamycin [Cleocin] 3 cap PO Q8H 11/25/18 [History] Cyanocobalamin (B-12) [Vitamin B12] 1,000 mcg PO DAILY 11/25/18 [History] Donepezil [Aricept] 10 mg PO HS 11/25/18 [History] Ergocalciferol (VITAMIN D2) [Drisdol (50,000 Unit)] 50,000 unit PO QWEEK 11/25/18 [History] Escitalopram [Lexapro] 20 mg PO DAILY 11/25/18 [History] Furosemide [Lasix] 20 mg PO BID 11/25/18 [History] Melatonin [Melatin] 3 mg PO HS 11/25/18 [History] Memantine [Namenda] 10 mg PO BID 11/25/18 [History] Methimazole [Tapazole] 5 mg PO DAILY 11/25/18 [History] NIFEdipine XL (24 HR) [Procardia XL] 30 mg PO DAILY 11/25/18 [History] Oxycodone HCl/Acetaminophen [Percocet 5-325 mg Tablet] 1 each PO Q6H PRN 11/25/18 [History] Pantoprazole Sodium [Protonix] 40 mg PO DAILY 11/25/18 [History] Povidone-Iodine 1 each TP BID 11/25/18 [History] Tiotropium [Spiriva] 18 mcg IH DAILY 11/25/18 [History] Warfarin 6 mg PO QPM 11/25/18 [History] levoFLOXacin [Levaquin] 750 mg PO Q48H 11/25/18 [History] Clindamycin HCl [Cleocin HCl] 450 mg PO TID #120 capsule 12/04/18 [Rx] Levofloxacin [Levaquin] 750 mg PO Q2D #10 tablet 12/04/18 [Rx] Lidocaine Patch [Lidoderm 5% patch] 1 each TP DAILY #14 adh..patch 12/04/18 [Rx] Methimazole [Tapazole] 5 mg PO DAILY #30 tablet 12/04/18 [Rx] Nitroglycerin 0.4 mg SL PRN PRN #1 bottle 12/04/18 [Rx] Oxycodone HCl/Acetaminophen [Percocet 5-325 mg Tablet] 1 each PO Q6HR PRN 7 Days #20 tablet 12/04/18 [Rx] Allergies/Adverse Reactions: Allergy/AdvReac Type Severity Reaction Status Date / Time atorvastatin Allergy Rash Verified 03/22/15 16:23 rosuvastatin Allergy Rash Verified 03/22/15 16:23 simvastatin Allergy Rash Verified 03/22/15 16:23 Certification: Further, I certify that my clinical findings support that this patient is homebound (i.e. absences from home require considerable and taxing effort and are for medical reasons or voodoo services or infrequently or short duration when for other reasons) because: Homebound Reason: Post-surgery restriction and or conditions limit ability to leave home, Leaving home requires considerable and taxing effort due to condition Attestation: My signature below is to certify that this patient is under my care and that I, or nurse practitioner, or a physician's metal moulder's assistant working with me, has a [id number] encounter with this patient.
[2018-12-04 12:31] VITALS: BP 137/69
[2018-12-04] MEDS: *HR* OxyCODONE/APAP 5/325 TABLET PO PRN (13:44)
--- NOTE | 2018-12-04 14:49 | Electrocardiograph Report ---
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
[2018-12-04] MEDS ORDERED: *HR* Warfarin 3 MG TABLET PO ONE (18:00)
== END 2018-12-04 15:42 | disposition home health service (06) | DRG 560 ==
LOC: INPGRE 16:23